=== PATIENT | male | born 1985 | race Two or more races ===

== ENCOUNTER 2019-02-15 17:31 | Emergency (ER) | payer SELFPAY ==
[~2019-02-15] VITALS: Ht 162.6 cm; Wt 75.7 kg
--- NOTE | 2019-02-15 18:01 | Emergency Room Report ---
History of Present Illness General Source: Patient, EMS, Law Enforcement Present Illness HPI Disclaimer: Please note that this report is being documented using DRAGON technology. This can lead to erroneous entry secondary to incorrect interpretation by the dictating instrument. HPI: 33-year-old male with history of hypertension and hyperlipidemia presents in custody of police for medical clearance with complaints of abdominal pain and left shoulder pain. According to EMS and police. The patient was found behaving bizarrely on the street and attempted to flee while being put in custody. He was taken down by police. Unclear whether or not there was a head injury but no loss of consciousness were reported. Denies headache, blurred vision. He is complaining of pain in the left shoulder and in the abdomen. He denies nausea or vomiting. Denies diarrhea, fever, chest pain, shortness of breath or URI symptoms. Patient arrives in restraints. He admits to using cocaine earlier today. Denies alcohol or tobacco use. PMH: Hypertension, hyperlipidemia PSH: None reported Allergies: None reported Social Hx: Cocaine use, denies alcohol use, denies tobacco use Allergies: Coded Allergies: No Known Allergies (Unverified , 02/15/19) Review of Systems All Other Systems: negative except mentioned in HPI Physical Exam Vital Signs Date Time Temp Pulse Resp B/P (MAP) Pulse Ox O2 Delivery O2 Flow Rate FiO2 02/15/19 18:28 98.6 87 16 114/78 (90) 97 Room Air General: Awake and alert, appears anxious, arrives restrained to the [facility] HEENT: Normocephalic, atraumatic. There are no scalp or face hematomas, lacerations or abrasions. No tenderness or soft tissue swelling over the facial bones. EOMI. PERRLA. No septal hematoma. There is a small laceration on the right lower corner of the lip less than 0.5 cm. Hemostatic. Very dry mucous membranes. Dentition is intact. No malocclusion Neck: Supple, trachea midline. Arrives without cervical collar Chest Wall: No tenderness, no deformity, no crepitus CV: Tachycardic. S1 and S2 normal. No murmur appreciated Resp: Normal work of breathing. No cough, wheezing or crackles appreciated Abd: Soft, nontender, nondistended Skin: Small laceration of the right bottom corner of the lip less than 0.5 cm. Hemostatic. No other rash or skin breakdown noted MSK: Normal tone and bulk. No obvious deformity. Moving all extremities. Ambulating without difficulty. Tenderness over the left shoulder, anterior aspect. No deformity, no overlying skin changes. Sensation is intact over the deltoid. No tenderness in the elbow, forearm or hand. Full range of motion otherwise. Neuro: Awake and alert. Mentating appropriately. Sensation is intact to light touch over the dermatomes of the upper and lower extremities Spine: There is no tenderness, step-off or deformity in the cervical spine. Medical Decision Making Diagnostic Impression: Primary Impression: Amphetamine abuse Additional Impressions: Medical clearance for incarceration Elevated liver enzymes Elevated bilirubin Microscopic hematuria ER Course 33-year-old male presents for evaluation and medical clearance prior to incarceration. Differential includes was not limited to acute head or neck injury, cocaine abuse, substance abuse, dehydration, pancreatitis, cholecystitis , gastritis, shoulder dislocation, fracture contusion. Patient require broad screening labs, IV fluids for his tachycardia, EKG, CT scan of the head and neck as well as an x-ray of the left shoulder. IV fluids are started. Lip laceration does not require closure. Tdap updated. Laboratory Tests Test 02/15/19 19:50 02/15/19 22:15 White Blood Count 19.9 K/UL (4.8-10.8) H Red Blood Count 5.40 M/UL (4.70-6.10) Hemoglobin 15.4 G/DL (14.2-18.0) Hematocrit 44.5 % (42.0-52.0) Mean Corpuscular Volume 82 FL (80-99) Mean Corpuscular Hemoglobin 28.4 PG (27.0-31.0) Mean Corpuscular Hemoglobin Concent 34.5 G/DL (32.0-36.0) Red Cell Distribution Width 10.3 % (11.6-14.8) L Platelet Count 273 K/UL (150-450) Mean Platelet Volume 5.9 FL (6.5-10.1) L Neutrophils (%) (Auto) % (45.0-75.0) Lymphocytes (%) (Auto) % (20.0-45.0) Monocytes (%) (Auto) % (1.0-10.0) Eosinophils (%) (Auto) % (0.0-3.0) Basophils (%) (Auto) % (0.0-2.0) Differential Total Cells Counted 100 Neutrophils % (Manual) 89 % (45-75) H Lymphocytes % (Manual) 7 % (20-45) L Monocytes % (Manual) 4 % (1-10) Eosinophils % (Manual) 0 % (0-3) Basophils % (Manual) 0 % (0-2) Band Neutrophils 0 % (0-8) Platelet Estimate Adequate Platelet Morphology Normal Red Blood Cell Morphology Normal Sodium Level 141 MMOL/L (136-145) Potassium Level 4.2 MMOL/L (3.5-5.1) Chloride Level 101 MMOL/L (98-107) Carbon Dioxide Level 18 MMOL/L (21-32) L Anion Gap 22 mmol/L (5-15) H Blood Urea Nitrogen 41 mg/dL (7-18) H Creatinine 1.3 MG/DL (0.55-1.30) Estimate Glomerular Filtration Rate > 60 mL/min (>60) Glucose Level 69 MG/DL (74-106) L Calcium Level 8.6 MG/DL (8.5-10.1) Total Bilirubin 1.4 MG/DL (0.2-1.0) H Direct Bilirubin 0.3 MG/DL (0.0-0.3) Aspartate Amino Transferase (AST) 1514 U/L (15-37) H Alanine Aminotransferase (ALT) 534 U/L (12-78) H Alkaline Phosphatase 114 U/L (46-116) Total Protein 8.0 G/DL (6.4-8.2) Albumin 4.4 G/DL (3.4-5.0) Globulin 3.6 g/dL Albumin/Globulin Ratio 1.2 (1.0-2.7) Lipase 101 U/L (73-393) Salicylates Level 1.9 ug/mL (2.8-20) L Acetaminophen Level < 2 MCG/ML (10-30) L Serum Alcohol < 3 mg/dL Urine Color Yellow Urine Appearance Slightly cloudy Urine pH 5 (4.5-8.0) Urine Specific [place] 1.025 (1.005-1.035) Urine Protein 2+ (NEGATIVE) H Urine Glucose (UA) 2+ (NEGATIVE) H Urine Ketones 4+ (NEGATIVE) H Urine Blood 5+ (NEGATIVE) H Urine Nitrite Negative (NEGATIVE) Urine Bilirubin Negative (NEGATIVE) Urine Urobilinogen Normal MG/DL (0.0-1.0) Urine Leukocyte Esterase Negative (NEGATIVE) Urine RBC 10-15 /HPF (0 - 0) H Urine WBC 0-2 /HPF (0 - 0) Urine Squamous Epithelial Cells Occasional /LPF Urine Bacteria Few /HPF (NONE) Urine Fine Granular Casts 0-2 /LPF (NONE) H Urine Opiates Screen Negative (NEGATIVE) Urine Barbiturates Screen Negative (NEGATIVE) Phencyclidine (PCP) Screen Negative (NEGATIVE) Urine Amphetamines Screen Positive (NEGATIVE) H Urine Benzodiazepines Screen Negative (NEGATIVE) Urine Cocaine Screen Negative (NEGATIVE) Urine Marijuana (THC) Screen Negative (NEGATIVE) EKG Diagnostic Results EKG Time: 18:43 Rate: normal Rhythm: NSR ST Segments: no acute changes Other Impression Sinus tachycardia, normal rhythm, borderline right axis. Normal intervals. No ST segment changes. Rhythm Strip Diag. Results Rhythm Strip Time: 18:43 EP Interpretation: yes Rate: 100s Rhythm: NSR, no PVC's, no ectopy Other X-Ray Diagnostic Results Other X-Ray Diagnostic Results : X-Ray ordered: L shoulder # of Views/Limited Vs Complete: 3 View Indication: Pain EP Interpretation: Yes Interpretation: no dislocation, no soft tissue swelling, no fractures Impression: No acute disease Electronically Signed by: Electronically signed by Dr. Nii Cooper CT/MRI/US Diagnostic Results CT/MRI/US Diagnostic Results : Impression Preliminary Findings Only See Final Report For Complete Findings CT HEAD Without Contrast: No ICH, mass effect or edema. No skull fracture. Radiologist: Fabian Carmona M.D. Preliminary Findings Only See Final Report For Complete Findings CT C SPINE: No acute fracture or subluxation. Radiologist: Fabian Carmona M.D. Study ready at 18:38 and initial results transmitted at 18:47 Reevaluation Time: 22:36 Status: improved Reevaluation Impression CT head and left shoulder x-rays are unremarkable for acute injury. Labs show an elevated white count with neutrophilic predominance but otherwise are within normal limits. No signs of infection otherwise, may be a stress reaction. BUN elevated though the patient receiving IV fluids. Talk screen positive for amphetamines. Bilirubin and LFTs are elevated, AST greater than ALT. Nonspecific and can be followed up. At this time there is no right upper quadrant pain, denies history of hepatitis, denies excessive alcohol use. Denies chest pain, shortness of breath, abdominal pain, injury. No longer complaining of pain in the shoulder. He has received IV fluids and is drinking water as well in the emergency department. We discussed the need for repeat labs can be arranged by halfway doctor or by his PMD. We also discussed reasons to return to the emergency department. He is medically cleared for incarceration. He understands and agrees with this treatment plan. Disposition: D/C TO LAW ENFORCEMENT IN CUST Condition: Improved Scripts No Active Prescriptions or Reported Meds Nii Cooper MD Feb 15, 2019 18:01
--- NOTE | 2019-02-15 18:31 | Diagnostic Imaging Report ---
Indication: Pain, trauma, status post fall Technique: Continuous helical CT scanning of the head was performed without intravenous contrast material. Axial and coronal 5 mm sections were generated. Radiation dose was minimized using automated exposure control Dose: Total Dose Length Product - DLP [address] Dose Index - CTDIvol(s) 74 mGy. Comparison: none Findings: The ventricular system is normal in size and configuration. There is no shift of midline structures. No abnormal extra-axial fluid collections are noted. There is no evidence of intracerebral bleeding. No other abnormal high or low density areas are noted within the brain. The calvarium is intact. The mastoids are clear. The sinuses are clear. The orbits are unremarkable. Impression: Normal CT scan of the head without contrast material. This agrees with the preliminary interpretation provided overnight by [facility] teleradiology service. The CT scanner at [facility] is accredited by the [employer] and the scans are performed using protocols designed to limit radiation exposure to as low as reasonably achievable to attain images of sufficient resolution adequate for diagnostic evaluation.
--- NOTE | 2019-02-15 18:48 | Diagnostic Imaging Report ---
Indication: Pain, trauma, status post fall Technique: Spiral acquisitions obtained through the cervical spine. No IV contrast utilized. Multiplanar reconstructions were generated. Total dose length product 260 mGycm. CTDIvol(s) 9 mGy. Dose reduction achieved using automated exposure control. Comparison: none Findings: Bony alignment is normal. Vertebral body heights are preserved. The disc spaces are preserved. No acute fractures. No dislocations. At C2-3, there is mild narrowing of the right neural foramen. At C3-4, there is moderate narrowing of the bilateral neural foramina. At the remaining disc levels, no significant disc bulge or protrusion, spinal stenosis, or neural foraminal stenosis. Included extra spinal soft tissues are unremarkable. The upper aerodigestive tract is unremarkable. Impression: No acute bony trauma Mild degenerative changes, as detailed above The CT scanner at [facility] is accredited by the [employer] and the scans are performed using protocols designed to limit radiation exposure to as low as reasonably achievable to attain images of sufficient resolution adequate for diagnostic evaluation.
[2019-02-15 18:50] VITALS: BP 116/70
--- NOTE | 2019-02-15 18:50 | NUR ---
ED Nurse Note: Pt brought by [employer] and ambulance. Pt brought in due to med clearance. Pt was taken down by police and injured upper lip. Pt also has minor skin tear L hand. Pt has pain 10/10 pain bilat shoulders, abdomen, and upper lip. Pt denies nausea. Pt alert and oriented x4, ambu. [employer] present in room. Pt blood labs sent. accucheck of 64 taken, Dr Cooper notified and states to give food and juice. Pt given juice, crackers, and jello. Pt set up on monitor. EKG taken.
--- NOTE | 2019-02-15 19:05 | NUR ---
ED Nurse Note: Pt received from BILLIE Ceron. No acute distress noted. MCKINLEY leyvaiff at bedside with pt. Will continue to monitor.
[2019-02-15 19:20] VITALS: BP 114/56
[2019-02-15 20:37] LABS: HEMATOCRIT 44.5 % (42.0-52.0); HEMOGLOBIN 15.4 G/DL (14.2-18.0); MEAN CORPUSCULAR VOLUME 82 FL (80-99); PLATELET COUNT 273 K/UL (150-450); RED CELL DISTRIBUTION WIDTH 10.3 % (11.6-14.8); WHITE BLOOD COUNT 19.9 K/UL (4.8-10.8)
[2019-02-15 20:43] LABS: ANION GAP 22 mmol/L (5-15); BLOOD UREA NITROGEN 41 mg/dL (7-18); CALCIUM 8.6 MG/DL (8.5-10.1); CARBON DIOXIDE 18 MMOL/L (21-32); CHLORIDE 101 MMOL/L (98-107); CREATININE 1.3 MG/DL (0.55-1.30); POTASSIUM 4.2 MMOL/L (3.5-5.1); SODIUM 141 MMOL/L (136-145)
[2019-02-15 20:52] LABS: ALANINE AMINOTRANSFERASE 534 U/L (12-78); ALBUMIN 4.4 G/DL (3.4-5.0); ALBUMIN/GLOBULIN RATIO 1.2 (1.0-2.7); ALKALINE PHOSPHATASE 114 U/L (46-116); BILIRUBIN,TOTAL 1.4 MG/DL (0.2-1.0)
[2019-02-15 21:01] LABS: ASPARTATE AMINO TRANSFERASE 1514 U/L (15-37); BILIRUBIN,DIRECT 0.3 MG/DL (0.0-0.3)
[2019-02-15] MEDS ORDERED: Tetanus/Diptheria/Pertussis IM ONE (22:15)
[2019-02-15 22:27] LABS: APPEARANCE,URINE SLIGHTLY CLOUDY; BILIRUBIN, URINE NEGATIVE (NEGATIVE); GLUCOSE, URINE (UA) 2+ (NEGATIVE); KETONES,URINE 4+ (NEGATIVE); LEUKOCYTE ESTERASE ,URINE NEGATIVE (NEGATIVE); NITRITE,URINE NEGATIVE (NEGATIVE); PH,URINE 5 (4.5-8.0); PROTEIN,URINE 2+ (NEGATIVE); UROBILINOGEN,URINE NORMAL MG/DL (0.0-1.0)
[2019-02-15 22:33] LABS: COLOR,URINE YELLOW
[2019-02-15 23:00] VITALS: BP 113/67
--- NOTE | 2019-02-15 23:00 | NUR ---
ER DISCHARGE NOTE: [facility], pt is aox4, on room air, with stable vital signs. DC instructions handed to deputy. Pt verbalized understanding. Pt id band and iv site removed without complications. Pt is able to ambulate with steady gait. Pt took all belongings. Pt accompanied by MCKINLEY bailon (badge #[id number]).
--- NOTE | 2019-02-16 18:43 | Diagnostic Imaging Report ---
Indication: Pain, trauma Technique: 3 views of the left shoulder Comparison: none Findings: No acute fractures. No dislocations. Joint spaces are preserved Impression: Negative
== END 2019-02-15 23:00 ==
LOC: EDBD 17:31 → EMR 18:25
DX: F15.10 Other stimulant abuse, uncomplicated (principal); R94.5 Abnormal results of liver function studies; R31.9 Hematuria, unspecified; I10 Essential (primary) hypertension; E78.5 Hyperlipidemia, unspecified; M25.512 Pain in left shoulder; Z23 Encounter for immunization
CPT/HCPCS: 36415; 70450; 72125; 73030; 80053; 80307; 81003; 82248; 82962; 83690; 85007; 85025; 90471; 90715; 93005; 96360; 99284; G0480; J7030